=== PATIENT | male | born 1965 | race Caucasian/White ===

== ENCOUNTER 2019-01-25 08:20 | Day surgery (SDC) | payer BC ==
[2019-01-25] VITALS (9 sets, daily range): BP systolic 92–116; BP diastolic 60–83; PULSE 50–70; TEMP 97.8
[~2019-01-25] VITALS: Ht 172.7 cm; Wt 83.0 kg
[~2019-01-25 08:20] MED LIST: CEPHALEXIN500 M1 PO; NORCO 325 MG-51 TAB PO; TYLENOL 325MG325 MG PO
[2019-01-25] MEDS ORDERED: ASPIRIN 32325 MG/TAB PO (08:31)
[2019-01-25] MEDS ORDERED: CRESTOR 10MG10 MG PO (08:32)
[2019-01-25 08:54] LABS: HEMATOCRIT 45.8 % (42.0-52.0); HEMOGLOBIN 15.6 g/dl (13.5-18.0); MEAN CELL VOLUME 87 fl (80.0-100.0); MEAN CORPUSCULAR HEMOGLOBIN 30 pg (27.0-31.0); MEAN CORPUSCULAR HGB CONC 34 g/dl (33.0-37.0); MEAN PLATELET VOLUME 10.2 fl (7.4-10.4); PLATELET COUNT 238 K/mm3 (130-400); RED BLOOD COUNT 5.25 M/mm3 (4.20-5.60); REDCELL DISTRIBUTION WIDTH-CV 13.1 % (11.5-14.5)
[2019-01-25 08:58] LABS: INR 0.9 (0.8-3.0); PROTHROMBIN TIME 10.4 SECONDS (9.7-12.8)
[2019-01-25 09:08] LABS: CREATININE, serum 0.72 (0.66-1.25); POTASSIUM 4.2 mmol/L (3.4-5.0)
--- NOTE | 2019-01-25 10:02 | NUR ---
SEE MERGE FOR ALL ADMINISTRATION TIMES OF MEDICATION, SEE ALSO FOR INTR/POST SEDATION ASSESSMENT, ALLENS TEST POSITIVE FOR RADIAL APPROACH.
--- NOTE | 2019-01-25 10:30 | NUR ---
Report taken from PAN[facility] in [employer].
--- NOTE | 2019-01-25 11:25 | NUR ---
Initial visit; Patient and his thanked Glaze Maker for offering prayer and God's blessings prior to his surgical procedure.
--- NOTE | 2019-01-25 11:58 | NUR ---
Pt up and ambulating in and around the unit with no complications. Pt tolerating intake with no N/V. Pt voided with no complications. at bedside. Discharge instructions reviewed with pt/SO. Pt/SO voice understanding.
--- NOTE | 2019-01-25 13:03 | NUR ---
5 ml of air was removed from TR band. No bleeding after 5 minutes. Remaining air was removed, 8 ml, from TR band. No bleeding, 2x2 gauze and coban was applied to site. Pt was discharged via w/c to the care of spouse in private vehicle with discharge instructions in hand.
== END 2019-01-25 13:00 | disposition home or self-care (01) ==
LOC: COL.CAR 08:20
PROVIDERS: Internal Medicine Cardiovascular Disease
DX: R07.89 Other chest pain (principal); R94.39 Abnormal result of other cardiovascular function study; I10 Essential (primary) hypertension; E78.5 Hyperlipidemia, unspecified; F17.210 Nicotine dependence, cigarettes, uncomplicated
CPT/HCPCS: J1644; J2250; J3010